=== PATIENT | female | born 1950 | race Caucasian/White ===

== ENCOUNTER 2017-11-28 08:55 | Inpatient (IN) ==
[2017-11-22 13:26] LABS: Basophils # 0.1 10*3/uL (0.0-0.2); Basophils % 1.1 % (0.0-0.8); Eosinophils # 0.1 10*3/uL (0.0-0.87); Eosinophils % 1.6 % (0.00-10.9); Hematocrit 38.3 VOL% (35.7-47.0); Immature Granulocytes % 0.4 %; Immature Granulocytes Absolute 0.03 #; Lymphocytes # 2.2 10*3/uL (1.4-4.0); Lymphocytes % 26.6 % (21.3-54.2); Mean Corpuscular HGB Conc 31.3 GM/DL (32-36); Mean Corpuscular Hemoglobin 29 PG (27-34); Mean Corpuscular Volume 92.3 FL (87-102); Mean Platelet Volume 9.1 FL (9.6-12.0); Monocytes # 0.6 10*3/uL (0.11-0.8); Monocytes % 6.9 % (1.7-12.7); Neutrophils # 5.2 10*3/uL (1.4-7.4); Neutrophils % 63.4 % (38.7-73.9); Platelet Count 288 T/CUMM (130-400); Red Blood Count 4.15 MC/CUMM (3.8-5.5); Red Cell Distribution Width 14.1 % (9.3-17.3); White Blood Count 8.2 T/CUMM (4-12)
[2017-11-22 13:38] LABS: Alanine Aminotransferase 42 U/L (13-56); Albumin 3.2 G/DL (3.4-5.0); Alkaline Phosphatase 53 U/L (45-117); Aspartate Amino Transferase 27 U/L (0-37); Bilirubin,Total < 0.39 MG/DL (0.2-1.0); Blood Urea Nitrogen 18 MG/DL (7-18); Calcium 8.6 MG/DL (8.5-10.1); Glucose 84 MG/DL (74-106); Potassium 4.3 MMOL/L (3.5-5.1); Sodium 143 MMOL/L (136-145); Total Protein 6.4 G/DL (6.4-8.3)
[~2017-11-28 08:55] MED LIST: ALVIMOPAN 12 MG CAPSULE PO ONE; AMPICILLIN 1,000 MG VIAL ONE; AMPICILLIN INJ 2,000 MG in SODIUM CHLORIDE 0.9% 100 ML IV ONE; GENTAMICIN INJ 50 ML IV ONE; GENTAMICIN INJ 80 MG in PREMIX 1 EACH IV ONE
[2017-11-28] MEDS ORDERED: DIAZEPAM 5 MG TABLET PO ONE (09:27)
[2017-11-28] MEDS ORDERED: FAMOTIDINE 20 MG TABLET PO ONE (09:27)
[2017-11-28] MEDS ORDERED: DIAZEPAM 5 MG TABLET ONE (09:30)
[2017-11-28] MEDS ORDERED: FAMOTIDINE 20 MG TABLET ONE (09:30)
[2017-11-28] MEDS ORDERED: ALVIMOPAN 12 MG CAPSULE ONE (09:40)
[2017-11-28] MEDS ORDERED: LACTATED RINGERS 1,000 ML IV SCH ×2 (10:00→18:00)
[2017-11-28] MEDS ORDERED: BUPIVACAINE MPF 0.25% /EPI 30 ML VIAL ONE (12:00)
[2017-11-28] MEDS ORDERED: LIDOCAINE 1%/EPI INJ 20 ML VIAL ONE (12:00)
[2017-11-28] MEDS ORDERED: fentaNYL 100 MCG/2 ML VIAL ONE (16:16)
[2017-11-28] MEDS ORDERED: ONDANSETRON 4 MG/2 ML VIAL IV PRN ×2 (17:21→17:42)
[2017-11-28] MEDS ORDERED: MEPERIDINE 50 MG/1 ML VIAL IV PRN (17:42)
[2017-11-28] MEDS ORDERED: MORPHINE 10 MG/1 ML VIAL IV PRN (17:42)
[2017-11-28] MEDS ORDERED: SEVOFLURANE 1 UNIT/15 MINUTE INH ONE (17:45)
[2017-11-28] MEDS ORDERED: DESFLURANE 1 UNIT/15 MINUTE INH ONE (17:45)
[2017-11-28] MEDS ORDERED: PROPOFOL 200 MG/20 ML VIAL IV ONE (17:46)
[2017-11-28] MEDS ORDERED: GLYCOPYRROLATE 0.4 MG/2 ML VIAL ONE (17:49)
[2017-11-28] MEDS ORDERED: ALBUMIN 5% 12.5 GM/250 ML VIAL IV ONE (17:50)
[2017-11-28] MEDS ORDERED: ROCURONIUM 100 MG/10 ML VIAL IV ONE (17:51)
[2017-11-28] MEDS ORDERED: DEXAMETHASONE 10 MG/1 ML VIAL ONE (17:51)
[2017-11-28] MEDS ORDERED: ACETAMINOPHEN 1,000 MG/100 ML VIAL IV ONE (17:51)
[2017-11-28] MEDS ORDERED: NEOSTIGMINE 10 MG/10 ML VIAL ONE (17:52)
[2017-11-28 18:00] LABS: Apearance,Urine CLEAR (Clear); Bilirubin,Urine Negative (Negative); Blood, Urine Small mg/dL (Negative); Glucose,Urine (UA) Negative (Negative); Ketones,Urine Negative (Negative); Nitrite,Urine Negative (Negative); Protein,Urine Negative; RBC,Urine <1 /HPF (0-4); Squamous Epithelial Cell,Urine Occasional /HPF (0-10); Urine Color Straw (Yellow); Urine Specific Gravity 1.005 (1.001-1.035); Urine Urobilinogen < 2.0 EU/DL (0.2-1.0); WBC,Urine <1 /HPF (0-6)
[2017-11-28] MEDS: DEXTROSE 5% LACTATED RINGERS 1,000 ML IV SCH (18:30)
[2017-11-28] MEDS: MORPHINE 4 MG/1 ML VIAL IV PRN (19:20)
[2017-11-28] MEDS ORDERED: MORPHINE 4 MG/1 ML VIAL IV PRN (20:00)
[2017-11-28 21:13] LABS: Hematocrit 37.1 VOL% (35.7-47.0); Hemoglobin 12.2 GM/DL (12.0-16.0)
[2017-11-28] MEDS: cefOXitin 2,000 MG in SYRINGE 1 EACH IV SCH (22:21)
[2017-11-28] MEDS: ALVIMOPAN 12 MG CAPSULE PO SCH (22:21)
[2017-11-28] MEDS: VERAPAMIL SR 240 MG TABLET PO SCH (22:21)
[2017-11-29] MEDS: DEXTROSE 5% LACTATED RINGERS 1,000 ML IV SCH ×3 (00:34→19:30)
[2017-11-29] MEDS: MORPHINE 4 MG/1 ML VIAL IV PRN ×3 (00:36→21:51)
[2017-11-29 01:40] LABS: Basophils % 0.2 % (0.0-0.8); Hematocrit 36.1 VOL% (35.7-47.0); Hemoglobin 11.4 GM/DL (12.0-16.0); Immature Granulocytes % 0.6 %; Immature Granulocytes Absolute 0.11 #; Lymphocytes # 0.7 10*3/uL (1.4-4.0); Lymphocytes % 3.7 % (21.3-54.2); Mean Corpuscular HGB Conc 31.6 GM/DL (32-36); Mean Corpuscular Hemoglobin 29 PG (27-34); Mean Corpuscular Volume 91.4 FL (87-102); Mean Platelet Volume 9.1 FL (9.6-12.0); Monocytes # 0.6 10*3/uL (0.11-0.8); Monocytes % 3.2 % (1.7-12.7); Neutrophils # 17.8 10*3/uL (1.4-7.4); Neutrophils % 92.3 % (38.7-73.9); Platelet Count 258 T/CUMM (130-400); Red Blood Count 3.95 MC/CUMM (3.8-5.5); Red Cell Distribution Width 13.6 % (9.3-17.3); White Blood Count 19.2 T/CUMM (4-12)
[2017-11-29 02:17] LABS: Albumin 2.9 G/DL (3.4-5.0); Bilirubin,Total 0.4 MG/DL (0.2-1.0); Calcium 8.2 MG/DL (8.5-10.1); Osmolality,Calculated 282.4 MOS/KG (273-304); Potassium 3.9 MMOL/L (3.5-5.1); Total Protein 6.2 G/DL (6.4-8.3)
[2017-11-29 02:27] LABS: Band Neutrophils 4 % (0-10); Lymphocytes 5 % (20-55); Segmented Neutrophils 89 % (50-85)
[2017-11-29 02:29] LABS: Hypochromasia 1+; Platelet Estimate Normal; Stomatocytes Few; Total Cells Counted 100
[2017-11-29] MEDS: cefOXitin 2,000 MG in SYRINGE 1 EACH IV SCH ×2 (02:41→09:21)
[2017-11-29] MEDS: ENOXAPARIN 40 MG/0.4 ML SYRINGE SUBCUT SCH (09:21)
[2017-11-29] MEDS: VERAPAMIL SR 240 MG TABLET PO SCH ×2 (09:22→21:39)
[2017-11-29] MEDS: PANTOPRAZOLE 40 MG TABLET PO SCH (09:22)
[2017-11-29] MEDS: ALVIMOPAN 12 MG CAPSULE PO SCH ×2 (09:22→21:39)
[2017-11-29] MEDS: LEVOTHYROXINE 25 MCG TABLET PO SCH (09:22)
[2017-11-29] MEDS: LISINOPRIL 5 MG TABLET PO SCH (09:22)
[2017-11-29 09:54] LABS: Hematocrit 33.6 VOL% (35.7-47.0)
[2017-11-30] MEDS: DEXTROSE 5% LACTATED RINGERS 1,000 ML IV SCH ×2 (02:23→09:54)
[2017-11-30 06:47] LABS: Basophils % 0.4 % (0.0-0.8); Eosinophils % 0.2 % (0.00-10.9); Hematocrit 28.9 VOL% (35.7-47.0); Hemoglobin 8.4 GM/DL (12.0-16.0); Immature Granulocytes % 0.5 %; Immature Granulocytes Absolute 0.05 #; Lymphocytes # 1.7 10*3/uL (1.4-4.0); Lymphocytes % 16.4 % (21.3-54.2); Mean Corpuscular HGB Conc 29.1 GM/DL (32-36); Mean Corpuscular Hemoglobin 29 PG (27-34); Mean Corpuscular Volume 100.3 FL (87-102); Mean Platelet Volume 9.7 FL (9.6-12.0); Monocytes # 0.8 10*3/uL (0.11-0.8); Monocytes % 7.6 % (1.7-12.7); Neutrophils # 7.6 10*3/uL (1.4-7.4); Neutrophils % 74.9 % (38.7-73.9); Platelet Count 200 T/CUMM (130-400); Red Blood Count 2.88 MC/CUMM (3.8-5.5); Red Cell Distribution Width 14.1 % (9.3-17.3); White Blood Count 10.1 T/CUMM (4-12)
[2017-11-30] MEDS: ALVIMOPAN 12 MG CAPSULE PO SCH ×2 (08:56→21:28)
[2017-11-30] MEDS: VERAPAMIL SR 240 MG TABLET PO SCH ×2 (08:56→21:28)
[2017-11-30] MEDS: LEVOTHYROXINE 25 MCG TABLET PO SCH (08:56)
[2017-11-30] MEDS: LISINOPRIL 5 MG TABLET PO SCH (08:57)
[2017-11-30] MEDS: PANTOPRAZOLE 40 MG TABLET PO SCH (08:57)
[2017-11-30] MEDS: ENOXAPARIN 40 MG/0.4 ML SYRINGE SUBCUT SCH (08:57)
[2017-11-30 11:40] LABS: Calcium 8.3 MG/DL (8.5-10.1); Osmolality,Calculated 287.7 MOS/KG (273-304); Potassium 3.9 MMOL/L (3.5-5.1)
[2017-12-01 04:38] LABS: Basophils # 0.1 10*3/uL (0.0-0.2); Basophils % 0.5 % (0.0-0.8); Eosinophils # 0.2 10*3/uL (0.0-0.87); Eosinophils % 2.2 % (0.00-10.9); Hematocrit 33.7 VOL% (35.7-47.0); Hemoglobin 10.9 GM/DL (12.0-16.0); Immature Granulocytes % 0.5 %; Immature Granulocytes Absolute 0.05 #; Lymphocytes # 2.4 10*3/uL (1.4-4.0); Lymphocytes % 23.8 % (21.3-54.2); Mean Corpuscular HGB Conc 32.3 GM/DL (32-36); Mean Corpuscular Hemoglobin 29 PG (27-34); Mean Corpuscular Volume 90.1 FL (87-102); Mean Platelet Volume 9.5 FL (9.6-12.0); Monocytes # 0.9 10*3/uL (0.11-0.8); Neutrophils # 6.4 10*3/uL (1.4-7.4); Platelet Count 274 T/CUMM (130-400); Red Blood Count 3.74 MC/CUMM (3.8-5.5); Red Cell Distribution Width 13.7 % (9.3-17.3)
[2017-12-01 05:03] LABS: Calcium 8.5 MG/DL (8.5-10.1); Osmolality,Calculated 283.8 MOS/KG (273-304); Potassium 3.2 MMOL/L (3.5-5.1)
[2017-12-01] MEDS: LEVOTHYROXINE 25 MCG TABLET PO SCH (06:04)
[2017-12-01] MEDS: VERAPAMIL SR 240 MG TABLET PO SCH ×2 (10:46→20:57)
[2017-12-01] MEDS: ALVIMOPAN 12 MG CAPSULE PO SCH ×2 (10:46→20:57)
[2017-12-01] MEDS: LISINOPRIL 5 MG TABLET PO SCH (10:47)
[2017-12-01] MEDS: ENOXAPARIN 40 MG/0.4 ML SYRINGE SUBCUT SCH (10:47)
[2017-12-01] MEDS: PANTOPRAZOLE 40 MG TABLET PO SCH (10:47)
[2017-12-01] MEDS: SERTRALINE 100 MG TABLET PO SCH (13:14)
[2017-12-01] MEDS: CALCIUM (CARBONATE)/VITAMIN D 600 MG-400 UNIT TABLET PO SCH (13:15)
[2017-12-01] MEDS: MELOXICAM 7.5 MG TABLET PO SCH (13:15)
[2017-12-01] MEDS: FENOFIBRATE 145 MG TABLET PO SCH (13:15)
[2017-12-01] MEDS ORDERED: PRAMIPEXOLE 0.25 MG TABLET PO SCH (21:00)
[2017-12-02] MEDS: LEVOTHYROXINE 25 MCG TABLET PO SCH (06:10)
[2017-12-02] MEDS: SERTRALINE 100 MG TABLET PO SCH (09:56)
[2017-12-02] MEDS: CALCIUM (CARBONATE)/VITAMIN D 600 MG-400 UNIT TABLET PO SCH (09:56)
[2017-12-02] MEDS: FENOFIBRATE 145 MG TABLET PO SCH (09:57)
[2017-12-02] MEDS: LISINOPRIL 5 MG TABLET PO SCH (09:57)
[2017-12-02] MEDS: MELOXICAM 7.5 MG TABLET PO SCH (09:58)
[2017-12-02] MEDS: VERAPAMIL SR 240 MG TABLET PO SCH (09:59)
[2017-12-02] MEDS: ALVIMOPAN 12 MG CAPSULE PO SCH (10:00)
[2017-12-02] MEDS: ENOXAPARIN 40 MG/0.4 ML SYRINGE SUBCUT SCH (10:00)
[2017-12-02] MEDS: PANTOPRAZOLE 40 MG TABLET PO SCH (10:07)
[2017-12-02 13:13] VITALS: BP 151/63
== END 2017-12-02 14:30 | disposition home or self-care (01) | DRG 330 ==
LOC: N.OR 08:55 → N.SDSINP 10:06 → N.3E 17:21
PROVIDERS: ADMIT Surgery; ATTEND Surgery